=== PATIENT | female | born 1970 | race Caucasian/White ===

== ENCOUNTER 2017-04-04 18:56 | Emergency (ER) | payer BC ==
[~2017-04-04 18:56] MED LIST: ERY-TAB333 M1 PO; LYRICA20 MG/1 ML; LYRICA75 MG PO; VOLTAREN100 GM TOP
[2017-04-04] MEDS ORDERED: PROTONIX PO (19:20)
== END 2017-04-04 19:53 | disposition home or self-care (01) ==
LOC: SED 18:56
DX: S00.83XA Contusion of other part of head, initial encounter (principal); W22.8XXA Striking against or struck by other objects, initial encounter; Y92.009 Unspecified place in unspecified non-institutional (private) residence as the place of occurrence of the external cause; Z79.899 Other long term (current) drug therapy
CPT/HCPCS: 99283